=== PATIENT | female | born 1965 | race American Indian/Alaskan Native ===

== ENCOUNTER 2017-11-25 06:21 | Day surgery (SDC) | payer MEDICARE, OTHER ==
[2017-10-24 09:12] VITALS: BMI 39.4
[2017-11-25] MEDS ORDERED: cefTRIAXone IV 1 gm in Dextros 50 ML IVPB ONE (07:24)
[2017-11-25] MEDS ORDERED: Iohexol 240 (50 ml) ONE (07:24)
[2017-11-25] MEDS ORDERED: Midazolam 2 MG/2 ML VIAL ONE (07:35)
[2017-11-25] MEDS ORDERED: Propofol 10 mg/ml Inj (20 ML) ONE (07:35)
[2017-11-25] MEDS ORDERED: Lactated Ringer's 1,000 ML IV ONE ×3 (08:05→10:06)
[2017-11-25] MEDS ORDERED: Lidocaine 2% Jelly (Uro-Jet) ONE (08:27)
[2017-11-25] MEDS ORDERED: Gentamicin 160 MG in Sodium Chloride 0.9% 100 ML IVPB ONE (08:29)
[2017-11-25] MEDS ORDERED: Ciprofloxacin 400mg/200ml D5W 400 MG/200 ML BAG IVPB ONE (08:45)
[2017-11-25] MEDS ORDERED: HYDROmorphone 0.5 mg/0.5 ml ISec IVP PRN (09:38)
--- NOTE | 2017-11-25 09:44 | PCM.SURG1 ---
Surgeon's Initial Post Op Note - Surgeon's Notes Surgeon: Jaymie Lentz Trade Sales Assistant: none Type of Anesthesia: General LMA Pre-Operative Diagnosis: Urolithiasis Operative Findings: Same. R ureteral calculi Post-Operative Diagnosis: same Operation Performed: cysto. R uretroscopy. Laser ureterolithotripsy. Stone basketing. Stent insertion Specimen/Specimens Removed: urine. R uretral stones Estimated Blood Loss: EBL {In ML}: 0 Blood Products Given: N/A Date of Surgery/Procedure: 11/25/17 Time of Surgery/Procedure: 09:20
--- NOTE | 2017-11-25 11:55 | RAD ---
PROCEDURE: Intraoperative Fluoroscopy. HISTORY: UROLITHIASIS FINDINGS: Fluoroscopic assistance was provided. Fluoroscopy time = 41.4 seconds Radiation dose = 1.04 mGy Please refer to the operative report from Dr. MENESES, [place].
[2017-11-25 12:29] VITALS: BP 144/79; PULSE 88; RESP 20; TEMP 97.9; O2SAT 100
--- NOTE | 2017-11-25 13:15 | RAD ---
HISTORY: UROLITHIASIS COMPARISON: Abdominal radiographs dated 10/24/2017. FINDINGS: BOWEL: Normal. No obstruction. No free air. BONES: Normal. OTHER FINDINGS: Bilateral double-J ureteral stents. 8 mm left lower pole calculus. Adjacent 8 and 4 mm calcifications adjacent to the right ureteral stent which may represent ureteral calculi. Calcified uterine fibroid in the pelvis. IMPRESSION: Bilateral double-J ureteral stents. Left lower pole nephrolithiasis. Questionable mid right ureteral stones.
--- NOTE | 2017-11-26 08:21 | OP ---
PROCEDURE DATE: 11/25/2017 PREOPERATIVE DIAGNOSES: Bilateral hydronephrosis. Bilateral urolithiasis. POSTOPERATIVE DIAGNOSES: Bilateral hydronephrosis. Bilateral urolithiasis. Right ureteral calculi. PROCEDURE: Cystoscopy. Right ureteroscopy. Right laser ureteral lithotripsy. Right ureteral stone basketing. Insertion of right ureteral stent. OPERATING SURGEON: Funmilayo Lentz MD Procedure was formed under video endoscopic control as well as under fluoroscopic control with C-arm. DESCRIPTION OF PROCEDURE: Procedure as follows: The patient received perioperative antibiotics intravenously. The patient was placed in lithotomy position. Genitalia prepped and draped sterilely. Anesthesia had been administered by the anesthesiologist via laryngeal mask airway. Sewing Machine Repairer Helper film of the abdomen revealed the presence of bilateral ureteral stents. There were calcifications noted along the mid right ureteral stent. There were no definite calcifications along the course of the left ureteral stent. There was a left renal calculus over the lower pole of the kidney. The 22-[place] cystoscope sheath was introduced with the obturator. Urine was sent for bacteriologic examination. The bladder was inspected. There was noted to be mild cystitis. There was no bladder tumor. There was no bladder stone. The right ureteral stent was grasped with rigid grasping forceps and delivered along with cystoscope sheath to the urethral meatus. A 0.035 inch guidewire was passed into the ureteral stent and passed up to the level of the kidney. The ureteroscope was advanced per urethra into the bladder. A second wire was passed through the ureteroscope into the ureter and up to the level of the kidney. The ureteroscope was advanced in atraumatic fashion under direct video endoscopic control as well as under fluoroscopic control. Under ureteroscopic control, the stones within the mid to upper ureter were visualized at approximately the L3 level. Laser ureterolithotripsy was performed to 365 micron fiber, and the holmium laser. The stone was broken using the dusting mode. There was excellent fragmentation obtained. Multiple small fragments were removed using the Flat Wire Stone Basket, under ureteroscopic control. The ureteroscope was reintroduced. There were no residual significant fragments noted. Ureteroscope passed easily up to the level of the renal pelvis. There were no further stones identified. The calyces were viewed at a distance. The ureteroscope was removed. The ureteral mucosa was intact. A 6-[place] MultiLength Stent was inserted over the remaining guidewire. Proper stent position was confirmed with fluoroscopy and endoscopy. The guidewire was removed. Stent was left in place. The bladder was reinspected and confirmed the above findings. The patient tolerated the procedure without complication. Funmilayo Lentz MD
== END 2017-11-25 11:50 | disposition home or self-care (01) ==
LOC: C.SDS 06:21
PROVIDERS: ATTEND Urology
DX: N13.2 Hydronephrosis with renal and ureteral calculous obstruction (principal); E11.9 Type 2 diabetes mellitus without complications; I10 Essential (primary) hypertension; G47.33 Obstructive sleep apnea (adult) (pediatric); G43.909 Migraine, unspecified, not intractable, without status migrainosus; E66.9 Obesity, unspecified
CPT/HCPCS: 52356; 74019; 82948; 87086; 88300; J0744; J1580; J7120